=== PATIENT | male | born 1965 | race African-American/Black ===

== ENCOUNTER 2022-12-27 16:18 | Emergency (ER) | payer SELFPAY ==
[~2022-12-27] VITALS: Ht 185.4 cm; Wt 104.0 kg
[2022-12-27 16:22] VITALS: O2SAT 98
[2022-12-27 17:00] LABS: EOSINOPHILS % 1.8 % (0.0-5.0); HEMATOCRIT. 36.7 % (42.0-52.0); HEMOGLOBIN. 12.2 g/dL (14.0-18.0); LYMPHOCYTES % 10.2 % (20.0-50.0); MEAN CORPUSCULAR HEMOGLOBIN 32.6 pg (28.0-32.0); MEAN CORPUSCULAR VOLUME 98.2 fL (80.0-94.0); MEAN PLATELET VOLUME 8.2 fl (7.4-10.4); MONOCYTES % 6.4 % (2.0-8.0); NEUTROPHILS % 80.6 % (40.0-76.0); PLATELET 234 x1000/uL (130-400); RED BLOOD CELL COUNT 3.73 mill/uL (4.7-6.1); RED CELL DISTRIBUTION WIDTH 13.6 % (11.6-14.6)
[2022-12-27 17:06] LABS: CHLORIDE 99 mEq/L (98-107)
[2022-12-27 17:17] LABS: ETHANOL BLOOD < 10 mg/dL (-10)
[2022-12-27] MEDS ORDERED: GUAI600T26 MT (18:02)
[2022-12-27] MEDS ORDERED: ACET-2708 MT (18:02)
[2022-12-27] MEDS ORDERED: ACETAMINOPHEN 325MG TABLET PO ONE (18:15)
[2022-12-27] MEDS ORDERED: GUAIFENESIN 600MG ER TABLET PO ONE (18:15)
[2022-12-27 18:20] VITALS: BP 124/56; PULSE 98; RESP 17; TEMP 98.2
== END 2022-12-27 18:15 | disposition home or self-care (01) ==
LOC: ER 16:18
DX: B34.9 Viral infection, unspecified (principal); I10 Essential (primary) hypertension; E11.9 Type 2 diabetes mellitus without complications; Z20.822 Contact with and (suspected) exposure to COVID-19
CPT/HCPCS: 80053; 80320; 83880; 83690; 85025; 84484; 36415; 71045; 93005; 99285; 87426; C9803; G0480